=== PATIENT | female | born 1975 | race Hispanic/Latino ===

== ENCOUNTER 2017-08-12 14:43 | Emergency (ER) | payer OTHER ==
[2017-08-12 14:50] VITALS: BP 137/80; PULSE 75; RESP 16; TEMP 97.7; O2SAT 99
--- NOTE | 2017-08-12 15:01 | ED PDOC ---
HPI: Back Time Seen by Provider: 08/12/17 14:52 Chief Complaint (Nursing): Back Pain Chief Complaint (Provider): Back Pain History Per: Patient History/Exam Limitations: no limitations Onset/Duration Of Symptoms: Days (x 3 weeks ) Current Symptoms Are (Timing): Still Present Additional Complaint(s): 42 year old female presents to the ED complaining of back pain for the past 3 weeks. Patient has been taking Tylenol for pain but this has not helped. Patient denies dysuria, hematuria, flank pain, fever or chills. No fall or trauma. Pain is non radiating. PMD: none Past Medical History Reviewed: Historical Data, Nursing Documentation, Vital Signs Vital Signs: Last Vital Signs Temp 97.7 F 08/12/17 14:48 Pulse 75 08/12/17 14:48 Resp 16 08/12/17 14:48 BP 137/80 08/12/17 14:48 Pulse Ox 99 08/12/17 14:48 - Medical History PMH: No Chronic Diseases - Surgical History Surgical History: - Family History Family History: States: No Known Family Hx - Living Arrangements Living Arrangements: With Family - Social History Current smoker - smoking cessation education provided: No Alcohol: None Drugs: Denies - Immunization History Hx Tetanus Toxoid Vaccination: No Hx Influenza Vaccination: No Hx Pneumococcal Vaccination: No - Home Medications Home Medications: Ambulatory Orders Medication Instructions Recorded Advil 10/11/15 Amoxicillin 500 mg PO Q12 #20 capsule 10/11/15 Ibuprofen [Motrin] 600 mg PO Q6 #30 tab 10/11/15 Zyrtec 10/11/15 Cyclobenzaprine [Cyclobenzaprine 10 mg PO TID PRN #20 tab 08/12/17 HCl] Naproxen [Naprosyn] 500 mg PO BID #20 tab 08/12/17 - Allergies Allergies/Adverse Reactions: Allergies Allergy/AdvReac Type Severity Reaction Status Date / Time No Known Allergies Allergy Verified 10/11/15 16:46 Review of Systems ROS Statement: Except As Marked, All Systems Reviewed And Found Negative Constitutional: Negative for: Fever, Chills Cardiovascular: Negative for: Chest Pain Respiratory: Negative for: Cough Gastrointestinal: Negative for: Nausea, Vomiting, Abdominal Pain Genitourinary Female: Negative for: Dysuria, Frequency, Incontinence Musculoskeletal: Positive for: Back Pain (for 3 weeks). Negative for: Leg Pain Physical Exam - Reviewed Nursing Documentation Reviewed: Yes Vital Signs Reviewed: Yes - Physical Exam Appears: Positive for: Well, Non-toxic, No Acute Distress Head Exam: Positive for: ATRAUMATIC, NORMAL INSPECTION, NORMOCEPHALIC Skin: Positive for: Normal Color. Negative for: Rash Eye Exam: Positive for: EOMI, Normal appearance, PERRL Neck: Positive for: Normal, Painless ROM Gastrointestinal/Abdominal: Positive for: Soft. Negative for: Tenderness Back: Positive for: Vertebral Tenderness (tenderness to thoracic and lumbar spine along midline with no step off). Negative for: L CVA Tenderness, R CVA Tenderness Extremity: Positive for: Normal ROM, Other (patient able to heel and toe walk) Neurologic/Psych: Positive for: Alert, Oriented, Gait (steady) - Laboratory Results Urine POC: Negative Urine dip results: Negative for: Leukocyte Esterase, Blood, Nitrate, Ketones, Glucose, Bilirubin, Protein - ECG O2 Sat by Pulse Oximetry: 99 (RA) Pulse Ox Interpretation: Normal - Other Rad Thoracic and LS Spine X-rays X-Ray: Interpreted by Me, Viewed By Me X-Ray Interpretation: no fx, no dis Medical Decision Making Medical Decision Making: Time: 14:58 Impression: 42 year old female with back pain for 3 weeks. Initial Plan: --Urine dipstick --Urine --Toradol 30 mg IM --Dorsal (Thoracic) Spine x-ray --LS Spine Ap/Lat Patient reports improvement after meds given. Prescriptions provided for Naprosyn and Flexeril. Patient was referred to clinic for follow up. Scribe Attestation: Documented by Marlen Mccracken, acting as a scribe for Ayah Islas PA-C Provider Scribe Attestation: All medical record entries made by the Scribe were at my direction and personally dictated by me. I have reviewed the chart and agree that the record accurately reflects my personal performance of the history, physical exam, medical decision making, and the department course for this patient. I have also personally directed, reviewed, and agree with the discharge instructions and disposition. Disposition - Clinical Impression Clinical Impression: Back strain - Patient ED Disposition Is Patient to be Admitted: No Counseled Patient/Family Regarding: Studies Performed, Diagnosis, Need For Followup, Rx Given - Disposition Referrals: [facility] [Outside] Disposition: Routine/Home Disposition Time: 16:14 Condition: IMPROVED Additional Instructions: Take prescription medications as directed as needed for pain. Follow-up with clinic for further evaluation. Prescriptions: Cyclobenzaprine [Cyclobenzaprine HCl] 10 mg PO TID PRN #20 tab PRN Reason: Muscle Spasm Naproxen [Naprosyn] 500 mg PO BID #20 tab Instructions: Back Exercises, Low Back Pain (DC), Muscle Strain (DC) Forms: [facility] (Indian) Print Language: BAHRAINI
--- NOTE | 2017-08-12 18:07 | RAD ---
HISTORY: pain COMPARISON: No prior. FINDINGS: BONES: No acute fracture or destructive bony lesion identified. Normal curvature. DISC SPACES: Multilevel degenerative spondylosis is appreciated on advanced basis at the mid to inferior levels. SOFT TISSUES: Normal. OTHER FINDINGS: None. IMPRESSION: Multilevel spondylosis. No acute fracture or spondylolisthesis. No destructive bony lesion appreciable.
--- NOTE | 2017-08-12 18:08 | RAD ---
PROCEDURE: Radiographs of the Lumbar Spine. HISTORY: pain COMPARISON: No prior. FINDINGS: BONES: Normal alignment. No listhesis. No fracture. DISC SPACES: Limited spondylosis seen at L2-3. Disc heights are adequately preserved throughout. OTHER FINDINGS: None. IMPRESSION: Minimal degenerative disease L2-3. No fracture or spondylolisthesis identified.
== END 2017-08-12 16:20 | disposition home or self-care (01) ==
LOC: H.ER 14:43
DX: M54.9 Dorsalgia, unspecified (principal)
CPT/HCPCS: 72070; 72100; 81025; 96372; 99282; J1885